=== PATIENT | female | born 1965 | race Caucasian/White ===

== ENCOUNTER 2020-08-19 12:55 | Emergency (ER) | payer MEDICARE, SELFPAY ==
--- NOTE | ~2020-08-19 | XR_ITS ---
EXAMINATION: XR toe 5th LT min 2V EXAM DATE: 08/19/2020 13:55 INDICATION: Initial encounter following injury, with pain of the left 5th toe. TECHNIQUE: Left 5th toe frontal, lateral and oblique projections obtained and reviewed. There is n o prior study for comparison. FINDINGS: There are no acute left 5th toe fractures or dislocations identified. There is no subcutan eous gas. The soft tissue is unremarkable. There are no radiopaque foreign bodies. IMPRESSION: No acute osseous findings. Reviewed, dictated and finalized at location B. IMPRESSION: No acute osseous findings.
[2020-08-19 13:13] VITALS: BP 136/70; PULSE 88; RESP 18; TEMP 36.1; O2SAT 96
[2020-08-19] MEDS: HYDROcodone/acetaminophen (*CRX) 5-325 MG TABLET 1 TAB PO (14:12)
--- NOTE | 2020-08-19 15:47 | ED.LOWEXIN ---
HPI - Extremity Injury (Lower) General Chief Complaint: Extremity Injury, Lower Stated Complaint: foot infection Time Seen by Provider: 08/19/20 13:28 History of Present Illness HPI Narrative: Patient is a 55-year-old female who presents the ER with left fifth toe pain. Reports she kicked it on recliner 1 month ago. She has been seen at another ER as well as by her primary care doctor since the injury. She had had negative x-rays. Her doctors scheduling her for ultrasounds of her arterial flow next week. She has no new injury. She is has persistent pain and purple discoloration to the toes since the trauma that has been unchanged. She has slight blistering over the fat pad of the toe. No fevers or chills or sweats. No chest pain. Has taken tramadol without relief of pain. Related Data Allergies Allergy/AdvReac Type Severity Reaction Status Date / Time lithium Allergy Severe N/V Verified 08/19/20 13:23 sulfamethoxazole Allergy Unknown Unknown Verified 08/19/20 13:23 trimethoprim Allergy Unknown Unknown Verified 08/19/20 13:23 Review of Systems Review of Systems: All systems reviewed & are unremarkable except as noted in HPI and below Constitutional: Constitutional: Denies chills, Denies fever(s) and Denies weakness Cardiovascular: Cardiovascular: Denies chest pain and Denies radiating jaw, neck or arm pain Musculoskeletal: Musculoskeletal: Reports arthralgias, Denies joint swelling and Denies muscle cramps PMFSH Past Medical History Medical History (Updated 08/19/20 @ 15:58 by Eduardo Edward MD) Asthma Depression Surgical History Surgical History (Updated 08/19/20 @ 15:51 by Eduardo Edward MD) No pertinent past surgical history Family History Family History (Updated 07/23/14 @ 07:13 by DOCTOR UNKNOWN) Mother Family history of malignant neoplasm of esophagus Other Carcinoma of colon Diabetes mellitus Family history of coronary artery disease Family history of lung cancer Family history of malignant neoplasm of male breast Social History Social History Second hand tobacco smoke exposure: No Alcohol intake: never Exam Narrative: Exam Narrative: GENERAL: Well-appearing, well-nourished, and in no acute distress. HEAD: Normocephalic, atraumatic. CHEST: Clear to auscultation. No respiratory distress. HEART: Regular rate and rhythm. Normal peripheral pulses. ABDOMEN: Soft, nontender, nondistended. EXTREMITIES: Normal range of motion. Tender palpation over the left fifth digit without tenderness of the fifth metatarsal. No tenderness over the plantar aspect of the MTPs. SKIN: Warm, dry, no rash. Left fifth digit has a blue discoloration with brisk capillary refill. There is slight blistering over the fat pad. There appears to be some dependent bruising. Nailbed is opaque. NEURO: Alert and oriented x3. Course Course Emergency Course: There may be a vascular flow issue related to the trauma 1 month ago. There is no evidence of cellulitis or necrosis. Digit has been unchanged for the last month. Feel outpatient work-up by PCP is appropriate. Also recommend patient obtain consultation from podiatry. Recommend she take an antiplatelet. Patient does report that she has history of the tips of her toes turning blue when she is cold. She could have some vascular phenomenon that is causing her issues. Vital Signs Vital signs: Vital Signs Temperature 96.9 F L 08/19/20 13:13 Pulse Rate 88 08/19/20 13:13 Respiratory Rate 18 08/19/20 13:13 Blood Pressure 136/70 08/19/20 13:13 Pulse Oximetry 96 08/19/20 13:13 Temperature 96.9 F L 08/19/20 13:13 Pulse Rate 88 08/19/20 13:13 Respiratory Rate 18 08/19/20 13:13 Blood Pressure 136/70 08/19/20 13:13 Pulse Oximetry 96 08/19/20 13:13 MDM - Extremity Injury (Lower) Imaging Data Radiologist's impression: ITS Impressions Toe X-Ray 08/19/20 13:56 IMPRESSION: No acute osseous findings.
[2020-08-19 16:12] VITALS: BP 142/92; PULSE 88; RESP 17; O2SAT 96
== END 2020-08-19 16:12 | disposition home or self-care (01) ==
PROVIDERS: Emergency Provider Emergency Medicine; PCP Internal Medicine
DX: M79.675 Pain in left toe(s) (principal); J45.909 Unspecified asthma, uncomplicated
CPT/HCPCS: 73660; 99283; A9270